=== PATIENT | male | born 1995 | race Caucasian/White ===

== ENCOUNTER 2025-03-18 17:43 | Emergency (ER) | payer OTHER, SELFPAY ==
[2025-03-18] VITALS (11 sets, daily range): BP systolic 127–151; BP diastolic 61–91; PULSE 57–93; RESP 10–20; TEMP 37.2–37.4; O2SAT 91–100; BMI 24.4
[2025-03-18 19:11] LABS: Influenza A - CEPHEID Flu A NEGATIVE (NEGATIVE); Influenza B - CEPHEID Flu B NEGATIVE (NEGATIVE)
[2025-03-18 19:12] LABS: COVID-19 CEPHEID 4-PLEX PCR Negative (Negative)
--- NOTE | 2025-03-18 20:56 | EKG_ITS ---
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
--- NOTE | 2025-03-18 21:13 | PC.NURSE ---
Pt reports feeling better but appears pale and endorses continued episodes lightheadedness and tingling to extremities. EKG obtained.
--- NOTE | 2025-03-18 21:14 | DI.RAD.S_ITS ---
PROCEDURE: XR CHEST 1V INDICATIONS: Chest Pain TECHNIQUE: One view of the chest was acquired. COMPARISON: None. FINDINGS: Surgical changes and devices: None. Lungs and pleura: Lungs are clear. No pleural effusions or pneumothorax. Mediastinum: Mediastinal contours appear normal. Heart size is normal. Bones and chest wall: No suspicious bony lesions. Overlying soft tissues appear unremarkable. IMPRESSION: No acute cardiopulmonary abnormality is seen. Dictated by: Mike Vale M.D. on 03/18/2025 at 22:35 Approved by: Mike Vale M.D. on 03/18/2025 at 22:35
[2025-03-18 21:29] LABS: PTT Partial Thromboplastin Tim 31 SECONDS (25.1-36.5)
[2025-03-18 21:35] LABS: Alanine Aminotransferase 19 IU/L (<50); Albumin 5.0 g/dL (3.5-5.0); Albumin Globulin Ratio 1.8 (1.0-2.8); Alkaline Phosphatase 43 U/L (38-126); Blood Urea Nitrogen 15 mg/dL (9-20); Calcium 9.8 mg/dL (8.4-10.2); Carbon Dioxide 23 mmol/L (22-32); Chloride 107 mmol/L (98-107); Creatine Kinase 53 U/L (55-170); Estimated Glomerular Filt Rate > 60 mL/min (>60); Globulin 2.8 g/dL (1.7-4.1); Glucose 114 mg/dL (70-99); HEMOLYSIS < 15 (0-50); Lipase 51 U/L (23-300); Magnesium 2.1 mg/dL (1.6-2.3); Potassium 3.6 mmol/L (3.4-5.1); Sodium 141 mmol/L (137-145); Total Protein 7.8 g/dL (6.3-8.2)
[2025-03-18 21:44] LABS: Add Manual Diff / Slide Review NO; Hematocrit 41.9 % (41-53); Hemoglobin 14.3 g/dL (13.5-17.5); Lymphocytes Absolute Auto 1700 /uL (1100-4500); Mean Corpuscular HGB Conc 34.0 % (30-36); Mean Corpuscular Hemoglobin 29.8 PG (26-34); Mean Corpuscular Volume 87.5 fL (80-100); Platelet Count 208 X10^3/uL (150-400)
[2025-03-18 21:46] LABS: Troponin I < 0.012 ng/mL (0.01-0.034)
[2025-03-18 22:43] LABS: UR Morphine/Opiate cutoff 300 Negative (Negative); Urine MDMA Negative (Negative); Urine Methamphetamines Negative (Negative); Urine Tetrahydrocannabinol Negative (Negative); Urine Tricyclic Antidepressant Negative (Negative)
--- NOTE | 2025-03-18 23:37 | ED_ITS ---
HPI - General Adult General Chief complaint: Upper Respiratory Symptoms Stated complaint: Nausea, weak. Time Seen by Provider: 03/18/25 22:06 Source: patient Mode of arrival: Ambulatory History of Present Illness HPI narrative: 29-year-old male reports syncopal episode about 3 weeks ago after taking oral cannabis gummy and hot shower, struck his head and face at that time, was evaluated at ED [facility] and recalls having blood testing and EKG and CT scanning of his head and cervical spine. Subsequent to that visit he had an inner episode of dizziness, and felt like he was going to pass out. Has had intermittent dizziness and fatigue symptoms. No focal weakness to face arm or leg. No focal numbness to face arm or leg. No palpitation or heart racing like symptoms. No history of seizure disorder, abnormal shaking or twitching. No difficulty with walking, vision, speech. Denies drug use besides cannabis use, does not believe he is using any new product, not increasing the dose, not aware of any change in potency or cumulative exposure to cannabis. No other drug use. Related Data Allergies Allergy/AdvReac Type Severity Reaction Status Date / Time No Known Allergies Allergy Verified 03/18/25 17:52 Patient History Social History Smoking Status: Current some day smoker Smoking Status: Current some day smoker Exam Narrative Exam Narrative: GENERAL: Well-developed patient, in mild distress. HEAD: Atraumatic. Normocephalic. EYES: Pupils equal round and reactive. Extraocular motions intact. No scleral icterus. No injection or drainage. ENT: Nose without bleeding, purulent drainage. Throat without erythema, tonsillar hypertrophy or exudate. Airway patent. NECK: Trachea midline. Non tender CARDIOVASCULAR: Regular rate and rhythm without murmurs, gallops, or rubs. RESPIRATORY: Clear to auscultation. Breath sounds equal bilaterally. No wheezes, rales, or rhonchi. GASTROINTESTINAL: Abdomen soft, non-tender, nondistended. EXTREMITIES: No edema or joint tenderness. BACK: Nontender without deformity or crepitance. No flank tenderness. NEURO: AOx3. Cranial nerves unremarkable as tested. Motor 5/5 bilateral symmetrical. Sensation intact to light touch face arm legs symmetrically. Cadfry-ak-geys testing and vdda-bk-vwyc testing normal. SKIN: No rash or erythema of visible areas Initial Vital Signs Initial Vital Signs: Vital Signs Temperature 99.3 F 03/18/25 17:47 Pulse Rate 89 03/18/25 17:47 Respiratory Rate 18 03/18/25 17:47 Blood Pressure 151/80 H 03/18/25 17:47 Pulse Oximetry 97 03/18/25 17:47 Oxygen Delivery Method Room Air 03/18/25 17:47 Course Orders Ordered: ED Orders 03/18/25 20:56 EKG-12 Lead Stat 03/18/25 21:07 Complete Blood Count AUTO DIFF Stat Comprehensive Metabolic Panel Stat Lipase Stat Magnesium Stat PTT Partial Thromboplastin Jose Luis Stat Troponin & CK Cardiac Panel Stat 03/18/25 21:14 XR chest 1V Stat 03/18/25 22:25 Urine Drug Screen, Rapid Stat Discontinued Medications Aspirin (Aspirin 81 Mg Chew Tab) 324 mg PO NOW ONE Stop: 03/18/25 21:15 Last Admin: 03/18/25 22:06 Dose: Not Given Documented By: LIZBET Vital Signs Vital signs: Vital Signs - 8 hr 03/18/25 20:51 03/18/25 21:56 03/18/25 21:58 Temperature 99.0 F Pulse Rate 80 75 73 Respiratory Rate 15 20 12 Blood Pressure 140/91 H Pulse Oximetry 99 99 Oxygen Delivery Method Room Air 03/18/25 21:58 03/18/25 22:00 03/18/25 22:00 Temperature Pulse Rate 71 Respiratory Rate 13 Blood Pressure 133/75 138/69 Pulse Oximetry 100 Oxygen Delivery Method Room Air 03/18/25 22:26 03/18/25 22:26 03/18/25 22:27 Temperature Pulse Rate 60 Respiratory Rate Blood Pressure 140/68 132/67 Pulse Oximetry 91 Oxygen Delivery Method 03/18/25 22:27 03/18/25 22:29 03/18/25 22:29 Temperature Pulse Rate 57 L Respiratory Rate 15 Blood Pressure 131/68 131/68 Pulse Oximetry 100 Oxygen Delivery Method 03/18/25 22:29 03/18/25 22:30 03/18/25 22:30 Temperature Pulse Rate 61 59 L Respiratory Rate 11 L 11 L Blood Pressure 127/69 Pulse Oximetry 100 100 Oxygen Delivery Method 03/18/25 23:00 03/18/25 23:00 03/18/25 23:30 Temperature Pulse Rate 93 H Respiratory Rate Blood Pressure 131/68 131/61 Pulse Oximetry 98 Oxygen Delivery Method 03/18/25 23:30 12/12/25 00:00 03/19/25 00:00 Temperature Pulse Rate 78 81 Respiratory Rate 10 L 17 Blood Pressure 116/70 Pulse Oximetry 100 99 Oxygen Delivery Method Room Air Medical Decision Making Lab Data Lab results reviewed: Yes I reviewed the patient's lab results. Lab results narrative: White blood cell count 8300, hemoglobin 14.3, platelets adequate. Glucose 114. Normal renal function, serum CO2, electrolytes. Normal liver functions and lipase. Troponin negative/unmeasurable. COVID flu influenza negative. Urine tox screen negative. 03/18/25 21:07 03/18/25 21:07 Labs: Lab Results 03/18/25 03/18/25 03/18/25 Range/Units 17:55 21:07 22:25 WBC 8.3 (4.5-11.0) X10^3/uL RBC 4.79 (4.5-5.9) X10^6/uL Hgb 14.3 (13.5-17.5) g/dL Hct 41.9 (41-53) % MCV 87.5 (80-100) fL MCH 29.8 (26-34) PG MCHC 34.0 (30-36) % RDW 12.5 (11.6-14.8) % Plt Count 208 (150-400) X10^3/uL Neut % (Auto) 75.0 (50-75) % Lymph % (Auto) 21.0 L (25-40) % [place] % (Auto) 3.6 (3-14) % Eos % (Auto) 0.1 L (2-4) % Baso % (Auto) 0.3 (0-2) % Neut # (Auto) 6200 (6223-1132) /uL Lymph # (Auto) 1700 (9295-1495) /uL [place] # (Auto) 300 (0-900) /uL Eos # (Auto) 0 (0-450) /uL Baso # (Auto) 0 (0-100) /uL APTT 31 (25.1-36.5) SECONDS Sodium 141 (137-145) mmol/L Potassium 3.6 (3.4-5.1) mmol/L Chloride 107 (98-107) mmol/L Carbon Dioxide 23 (22-32) mmol/L BUN 15 (9-20) mg/dL Creatinine 0.91 (0.66-1.25) mg/dL Estimated GFR > 60 (>60) mL/min BUN/Creatinine Ratio 16.5 (6-22) Glucose 114 H (70-99) mg/dL Calcium 9.8 (8.4-10.2) mg/dL Magnesium 2.1 (1.6-2.3) mg/dL Total Bilirubin 0.5 (0.2-1.3) mg/dL AST 21 (17-59) IU/L ALT 19 (<50) IU/L Alkaline Phosphatase 43 (38-126) U/L Total Creatine Kinase 53 L (55-170) U/L Troponin I < 0.012 (0.01-0.034) ng/mL Total Protein 7.8 (6.3-8.2) g/dL Albumin 5.0 (3.5-5.0) g/dL Globulin 2.8 (1.7-4.1) g/dL Albumin/Globulin Ratio 1.8 (1.0-2.8) Lipase 51 (23-300) U/L U Opiates 300ng/mL cut Negative (Negative) Ur Oxycodone Screen Negative (Negative) Urine Methadone Screen Negative (Negative) Ur Barbiturates Screen Negative (Negative) U Tricyclic Antidepress Negative (Negative) Ur Phencyclidine Scrn Negative (Negative) Ur Amphetamines Screen Negative (Negative) U Methamphetamines Scrn Negative (Negative) Ur MDMA Scrn (Ecstasy) Negative (Negative) U Benzodiazepines Scrn Negative (Negative) Urine Cocaine Screen Negative (Negative) U Marijuana (THC) Screen Negative (Negative) Urine pH TNP Urine Specific [place] TNP Ur Creatinine TNP SARS-CoV-2 (PCR) Negative (Negative) Influenza A (RT-PCR) Flu a negative (NEGATIVE) Influenza B (RT-PCR) Flu b negative (NEGATIVE) RSV (PCR) Negative (Negative) Imaging Data Chest x-ray: Radiologist's Impression: [address] [address] XRay Report Signed Patient: Héctor Becerra MR#: [id number] : 1995 Acct:[id number] Age/Sex: 29 / M Date of Service: 03/18/25 Loc: ED Accession Number: [id number] Procedure: XR chest 1V Ordering Provider: Mj Babb MD PROCEDURE: XR CHEST 1V INDICATIONS: Chest Pain TECHNIQUE: One view of the chest was acquired. COMPARISON: None. FINDINGS: Surgical changes and devices: None. Lungs and pleura: Lungs are clear. No pleural effusions or pneumothorax. Mediastinum: Mediastinal contours appear normal. Heart size is normal. Bones and chest wall: No suspicious bony lesions. Overlying soft tissues appear unremarkable. IMPRESSION: No acute cardiopulmonary abnormality is seen. Dictated by: Mike Vale M.D. on 03/18/2025 at 22:35 Approved by: Mike Vale M.D. on 03/18/2025 at 22:35 ECG Data Attestation: I personally reviewed and interpreted this ECG as follows: Interpretation: 2101, we will sinus rhythm with PACs, ventricular heart rate response 62. No obvious ST segment elevation or depression changes. MS 134, QRS 90, QTC 428. MDM Narrative Medical decision making narrative: 29-year-old male 3 weeks ago had fall in shower in context of cannabis use and hot shower, striking head and face, seen at other facility with negative brain/C-spine imaging, EKG, blood work. Subsequently he has had intermittent dizziness like symptoms, and feeling that he might pass out, no known seizure problems, incontinence, focal weakness. Consider postconcussive syndrome, bradycardia, tachyarrhythmia, atypical seizure, drug effect, versus other. EKG, labs sent. EKG with sinus rhythm, PACs, no acute changes obvious. Lab data: White blood cell count 8300, hemoglobin 14.3, platelets adequate. Glucose 114. Normal renal function, serum CO2, electrolytes. Normal liver functions and lipase. Troponin negative/unmeasurable. COVID flu influenza negative. Urine tox screen negative. Unremarkable exam including nonfocal neuro exam. He might post concussive syndrome from head/face trauma 3 weeks ago. Versus some other cause. Consider ambulatory cardiac monitoring to screen for bradycardia or tachyarrhythmia. Given contact information for local [facility] Dr. Laguna, to consider ZIO patch monitoring. Consider neurology consultation if symptoms are persisting and cardiology workup unrevealing. Patient expressed interest in following up with the [place] system where he has medical insurance coverage. Discharged home with family. Return precautions discussed. Discharge Plan Departure Patient Disposition: Home Clinical Impression: Dizziness Instructions: DI for Dizziness-Nonvertigo Activity Restrictions/Additional Instructions: Fall evaluation at outside facility about 3 weeks ago, with recalled workup at that facility including CT scanning of the brain in the cervical spine, and blood testing and EKG testing. You had a fall in the shower at that time in context of edible cannabis use, however you have ongoing cannabis use with no new product or change in known dosage. You had injury to the scalp and face at that time. Since then you have had intermittent episodes of dizziness of unclear cause. It is possible to have head/face trauma and subsequent dizziness due to post concussive sequelae, that might need more time to resolve. No associated shortness of breath or chest discomfort seems to be persistent or consistent with your intermittent episodes, that seemed rather self-limited and fairly brief. No known seizure activity. Reassuring evaluation here tonight including EKG and lab testing. Neurological exam seemed quite reassuring and normal. Consider further workup as an outpatient, [facility]. Consider cardiac monitoring testing ambulatory outpatient, which could be arranged through cardiology clinic, contact information given for the clinic of local [facility] Dr. Laguna, to see if this could be accomplished while your waiting [facility] other [facility] for [facility] workup as needed. Contact the office of Dr. Walker during open regular hours, to see if cardiac monitoring could be accomplished see their clinic. Otherwise follow up with your regular doctor for referrals further workup as an outpatient as needed. Referrals: Jimy Laguna MD [Physician, Cardiology]
[2025-03-19] VITALS: BP 116/70; PULSE 81; RESP 17; O2SAT 99
== END 2025-03-19 00:15 | disposition home or self-care (01) ==
PROVIDERS: Emergency Medicine; Emergency Provider Emergency Medicine
DX: R42 Dizziness and giddiness (principal); R53.1 Weakness; R55 Syncope and collapse
CPT/HCPCS: 36415; 71045; 80053; 80305; 82550; 83690; 83735; 84484; 85025; 85730; 87637; 93005; 99283; 99284